=== PATIENT | female | born 1965 | race Hispanic/Latino ===

== ENCOUNTER 2022-08-18 08:46 | Emergency (ER) | payer SELFPAY ==
[~2022-08-18] VITALS: Ht 157.5 cm; Wt 72.6 kg
[2022-08-18 08:59] VITALS: BP 143/68
[2022-08-18 09:07] VITALS: BP 143/68
--- NOTE | 2022-08-18 09:41 | ER.PDOC ---
General Chief Complaint: Female Urogenital Problems Stated Complaint: FEMALE Time seen by MD: 09:38 Source: patient Exam Limitations: no limitations History of Present Illness Initial Comments Not able to urinate since about 4am this morning. Patient has the urge but she can't urinate. When she arrived the emergency room, she went to the restroom and passed a few drops of urine which she says looked bloody. She has lower abdominal pain. No nausea or vomiting. Timing/Duration: this morning Severity/Quality: moderate Location of Pain: abdominal pain Associated Symptoms: abdominal pain Allergies: Coded Allergies: No Allergy Information Available (Unverified , 08/18/22) Pt states she is allergic to an antibiotic but doesn't know which one. States it turned her skin red when she had an iv abx. Past Medical History Medical History: COPD, diabetes, hypertension Surgical History: tubal Family History Significant Family History: no pertinent family hx Social History Smoking: non-smoker Alcohol Use: occassionally Drug Use: none Review of Systems Constitutional: no symptoms reported EENTM: no symptoms reported Respiratory: no symptoms reported Cardiovascular: no symptoms reported Gastrointestinal: see HPI Genitourinary: see HPI All Other Systems: Reviewed and Negative Physical Exam General Appearance: No Apparent Distress, WD/WN EENT: eyes nml inspection, nml ENT inspection, pharynx nml Neck: nml inspection, non-tender Cardiovascular/Respiratory: Regular Rate, Rhythm, No M/R/G, Normal Peripheral Pulses, No JVD, Normal Breath Sounds, No Respiratory Distress Abdomen: Normal Bowel Sounds, Tenderness (loer abdomen) Back: nml inspection Pelvic: External Exam Normal Extremities: Normal Range of Motion, Non-Tender, Normal Inspection, No Pedal Edema, No Calf Tenderness, Normal Capillary Refill Neurologic/Psychiatric: forging die finisher II-XII NML as Tested, No Motor/Sensory Deficits, Alert, Normal Mood/Affect, Oriented x 3 Skin: Normal Color, Warm/Dry Lymphatic: No Adenopathy Results/Orders Results/Orders Orders - ALEXANDRA CALL MD Cbc With Auto Diff (08/18/22 09:29) Comprehensive Metabolic Panel (08/18/22 09:29) PT (08/18/22 09:29) Partial Thromboplastin Time. (08/18/22 09:29) Urinalysis (08/18/22 09:29) Ct Abd/Pelvis Wo Iv Contrast (08/18/22 09:29) Hcg Urine (08/18/22 09:29) [place] To [place] (08/18/22 09:29) 0.9 % Sodium Chloride (Ns 100ml) (08/18/22 10:32) Ceftriaxone Sodium (Rocephin) (08/18/22 10:32) Ceftriaxone Sodium (Rocephin) (08/18/22 10:39) Urine Culture (08/18/22 09:45) Vital Signs Date Time Temp Pulse Resp B/P (MAP) Pulse Ox O2 Delivery O2 Flow Rate FiO2 08/18/22 09:07 98.2 92 18 08/18/22 09:07 98.2 92 18 93 08/18/22 08:59 98.2 92 18 143/68 (93) 93 Room Air* 0 21 Administered Medications Medications (Trade) Dose Ordered Sig/Cynthia Route PRN Reason Start Time Stop Time Status Last Admin Dose Admin Ceftriaxone Sodium 1000 mg/ Sodium Chloride 100 ml @ 100 mls/hr STAT STAT IV 08/18/22 10:39 08/18/22 11:38 08/18/22 10:45 100 MLS/HR Laboratory Tests Test 08/18/22 09:45 White Blood Count 18.7 10^3/uL (4.5-11.0) H Red Blood Count 5.12 10^6/uL (4.00-5.20) Hemoglobin 15.6 g/dL (12.0-15.0) H Hematocrit 46.5 % (36.0-46.0) H Mean Corpuscular Volume 90.8 fL (78-100) Mean Corpuscular Hemoglobin 30.5 pg (26-34) Mean Corpuscular Hemoglobin Concent 33.5 g/dL (33-36.5) Red Cell Distribution Width 11.7 % (11.5-14.5) Platelet Count 288 10^3/uL (150-400) Mean Platelet Volume 10.0 fL (7.8-11.0) Neutrophils (%) (Auto) 74.7 % (41.0-85.0) Lymphocytes (%) (Auto) 16.1 % (24.0-44.0) L Monocytes (%) (Auto) 5.3 % (5.0-12.0) Neutrophils # (Auto) 14.0 10^3/uL (1.8-7.7) H Lymphocytes # (Auto) 3.00 10^3/uL1 (1.0-4.8) Monocytes # (Auto) 1.0 10^3/uL (0.3-0.8) H Absolute Immature Granulocyte (auto 0.09 10^3 u/L (0-2) Absolute Eosinophils (auto) 0.5 10^3/uL (0.0-0.2) H Immature Granulocytes % 0.50 % (0.00-0.50) Eosinophils % 2.5 % (0.0-5.0) Basophils % 0.9 % (0.0-0.2) H Basophils # 0.2 10^3/uL (0.0-0.1) H Prothrombin Time 9.5 SEC (9.1-11.5) Prothrombin Time INR (Non-Therap) 0.9 Activated Partial Thromboplast Time 27.4 SEC (22.5-33.1) Urine Collection Type CATH Urine Color YELLOW Urine Appearance CLOUDY Urine Bilirubin 1+ (NEGATIVE) H Urine Ictotest POSITIVE (NEGATIVE) H Urine Ketones NEGATIVE (NEGATIVE) Urine Specific [place] >=1.030 (1.005-1.030) Urine pH 5.5 (4.5-8.0) Urine Protein 2+ (NEGATIVE) H Urine Urobilinogen 0.2 E.U./dL (0.2) Urine Nitrate NEGATIVE (NEGATIVE) Urine Leukocyte Esterase 1+ (NEGATIVE) H Urine Glucose (Auto)(UA) 500 mg/dL (NEGATIVE) H Urine Blood 3+ (NEGATIVE) H Urine RBC TooNumerousToCount RBC/HPF (NONE Urine WBC TooNumerousToCount WBC/HPF (0-2) Urine Squamous Epithelial Cells FEW (<=FEW) Urine Renal Epithelial Cells FEW (NONE SEEN) A Urine Bacteria FEW (NONE SEEN) H Urine HCG, Qualitative NEGATIVE (NEGATIVE) Sodium Level 133 mmol/L (132-145) Potassium Level 3.9 mmol/L (3.6-5.2) Chloride Level 98.0 mmol/L (96-109) Carbon Dioxide Level 27.6 mmol/L (20.0-32) Anion Gap 11.3 Blood Urea Nitrogen 12 mg/dL (7-18) Creatinine 0.79 mg/dL (0.59-1.40) Estimated GFR () 90.8 (>/=60) Est GFR (CKD-EPI)(Non-Afr Salvadorean) 75.0 (>/=60) BUN/Creatinine Ratio 15.0 Glucose Level 282 mg/dL (70-110) H Calcium Level 8.9 mg/dL (8.4-10.5) Total Bilirubin 0.3 mg/dL (0.2-1.0) Aspartate Amino Transferase (AST) 14 U/L (0-35) Alanine Aminotransferase (ALT) 32 U/L (12-78) Alkaline Phosphatase 156 U/L (50-136) H Total Protein 7.3 g/dL (6.4-8.2) Albumin 3.7 g/dL (3.4-5.0) Globulin 3.6 Albumin/Globulin Ratio 1.[address] abdomen/pelvis: No CT abnormality seen to explain patient's abdominal pain. 2. Normal appendix. 3. Hyperdense hepatic mass versus focal fatty sparing, MRI abdomen with and without contrast recommended to further evaluate. 4. Sigmoid diverticulosis. Chemistry show glucose of 282, rest of chemistry is unremarkable. Urinalysis is consistent with UTI. WBC is 18.7 and hemoglobin is 15.6. Urine hCG is negative . [place]al[place] catheter inserted to gravity and less than 30 cc of urine according out. Patient treated with Rocephin for UTI. Told patient about the hypodense hepatic mass versus focal fatty sparing. She understand that she will need to follow-up with her PCP to get an MRI of the liver to rule out a mass. ER DEPART Departure Time of Disposition: 10:52 Disposition: 01 HOME / SELF CARE / HOMELESS Impression: Primary Impression: Nonspecific abdominal pain Additional Impression: UTI (urinary tract infection) Condition: Improved Referrals: PCP,UNKNOWN (PCP) PRIMARY CARE PROVIDER Additional Instructions: Ciprofloxacin Follow-up with your PCP next week Return to ED if worsening or concerns Duration or Time Spent with Pa: 60 min Problem Qualifiers Additional Impression: UTI (urinary tract infection) Urinary tract infection type: site unspecified Hematuria presence: with hematuria Qualified Codes: N39.0 - Urinary tract infection, site not specified; R31.9 - Hematuria, unspecified ALEXANDRA CALL MD Aug 18, 2022 09:41
[2022-08-18 09:56] LABS: BASOPHIL # 0.2 10^3/uL (0.0-0.1); BASOPHIL % 0.9 % (0.0-0.2); EOSINOPHIL # 0.5 10^3/uL (0.0-0.2); EOSINOPHIL % 2.5 % (0.0-5.0); LYMPHOCYTES % 16.1 % (24.0-44.0); MEAN CORP HGB 30.5 pg (26-34); MONOCYTES % 5.3 % (5.0-12.0); NEUTROPHILS % 74.7 % (41.0-85.0); PLATELET COUNT 288 10^3/uL (150-400); RED CELL DISTRIBUTION WIDTH 11.7 % (11.5-14.5)
[2022-08-18 09:58] LABS: BILIRUBIN,URINE 1+ (NEGATIVE); UROBILINOGEN,URINE 0.2 E.U./dL (0.2)
--- NOTE | 2022-08-18 10:07 | NUR ---
CATHETER 15F SAM CATHETER BULB REMOVED OF 10CC NS, CATHETER REMOVED, TIP INTACT. PT TOLERATED WITHOUT COMPLAINT.
[2022-08-18 10:23] LABS: CARBON DIOXIDE 27.6 mmol/L (20.0-32)
--- NOTE | 2022-08-18 10:29 | DIREP ---
PROCEDURE:CT ABDOMEN/PELVIS W/O CONTRAST COMPARISON:None. INDICATIONS:lower abdominal pain and hematuria TECHNIQUE:Axial images were created through the abdomen and pelvis without intravenous contrast material. No oral contrast was administered. Sagittal and coronal reconstructions were performed from source images. FINDINGS: LUNG BASES:Normal. No visible pulmonary or pleural disease. LIVER:Diffusely diminished hepatic attenuation consistent with hepatic steatosis. Left hepatic lobe ill-defined hyperdense does not appear clearly masslike and may reflect focal fatty sparing measures 2.7 x 2.9 x 4.5 cm AP/transverse/craniocaudal. BILIARY:Normal. No visible dilatation or calcification. PANCREAS:Normal. No lesion, fluid collection, ductal dilatation, or atrophy. SPLEEN:Normal. No enlargement or focal lesion. ADRENALS:Normal. No mass or enlargement. URINARY TRACT:Normal. No focal lesions or hydronephrosis. AORTA/VASCULAR:There are aortic atherosclerotic calcifications present. No aneurysm. RETROPERITONEUM:Normal. No mass or adenopathy. BOWEL/MESENTERY:The appendix is visualized and appears normal. There is no intestinal obstruction, free fluid, free air or mesenteric inflammatory changes. Moderate sigmoid diverticulosis. ABDOMINAL WALL:Small fat containing periumbilical hernia. No mass or hernia. PELVIC ORGANS:Montalvo catheter within decompressed urinary bladder. BONES:Normal for age. No bony lesion or acute fracture. OTHER:Negative. CONCLUSION: 1. No CT abnormality seen to explain patient's abdominal pain. 2. Normal appendix. 3. Hyperdense hepatic mass versus focal fatty sparing, MRI abdomen with and without contrast recommended to further evaluate. 4. Sigmoid diverticulosis. Dictated by: Jerson Herbert M.D. on 08/18/2022 at 10:18 AM
[2022-08-18] MEDS ORDERED: ROCEPHIN ONE (10:32)
[2022-08-18] MEDS ORDERED: NS 100ML 100 ML IV ONE (10:32)
[2022-08-18] MEDS ORDERED: ROCEPHIN 1,000 MG in NS 100ML 100 ML IV STA (10:39)
== END 2022-08-18 11:00 | disposition home or self-care (01) ==
LOC: ER 08:46
DX: R10.30 Lower abdominal pain, unspecified (principal); E11.9 Type 2 diabetes mellitus without complications; F10.20 Alcohol dependence, uncomplicated; I10 Essential (primary) hypertension; J44.9 Chronic obstructive pulmonary disease, unspecified; N39.0 Urinary tract infection, site not specified; R31.9 Hematuria, unspecified
CPT/HCPCS: 99284; 74176; 96374; 87086; 80053; 85025; 36415; 81001; 81025; 85610; 85730; 87077; 87186; J0696

== ENCOUNTER → 2023-04-02 | Outpatient (CLI) | payer BC, OTHER ==
--- NOTE | 2023-04-02 21:30 | DIREP ---
PROCEDURE:MRI ABDOMEN W & W/O CONTRAST COMPARISON:[facility], CT, CT ABD/PELVIS W/O, 08/18/2022, 09:55 AM. INDICATIONS:HYPERDENSE HEPATIC MASS, FOCAL FATTY SPARING TECHNIQUE:A comprehensive examination was performed utilizing a variety of imaging planes and imaging parameters to optimize visualization of suspected pathology. Images were obtained both before and after intravenous gadolinium infusion. FINDINGS: LIVER:Overall liver is enlarged. Within the segment 3 of the liver is a rounded area of decreased T2 signal, relative decreased T1 signal precontrast nonfat sat sequence, corresponds to previous CT finding. On out of phase imaging the majority of the liver loses signal with patchy areas of no signal dropout, corresponding to areas of relative hypointensity on T1 and T2 imaging suggesting fatty sparing. After IV contrast these areas appear relatively brighter than background liver but the background of steatosis is the false appearance of enhancement. However no subtraction imaging has been performed which could prove useful. BILIARY:Unremarkable PANCREAS:No lesion, fluid collection, ductal dilatation, or atrophy. SPLEEN:No enlargement or focal lesion. KIDNEYS:Unremarkable ADRENALS:Unremarkable AORTA/VASCULAR:Normal. RETROPERITONEUM:Normal. BOWEL/MESENTERY:Normal. ABDOMINAL WALL:Normal. BONES:Normal. CONCLUSION: 1. Enlarged liver. Inhomogeneous heterogenous fatty change throughout the liver with areas of suspected focal fatty sparing in both lobes of the liver. However limited without subtraction postcontrast imaging. Recommend follow-up MRI liver mass protocol with and without contrast with subtraction imaging in 6 months. Dictated by: Mykel Kaplan M.D. on 04/02/2023 at 09:21 PM
== END | disposition home or self-care (01) ==
LOC: RAD 10:46
PROVIDERS: ATTEND Nurse Practitioner Family
DX: R16.0 Hepatomegaly, not elsewhere classified (principal)
CPT/HCPCS: 74183; A9579